=== PATIENT | male | born 1975 | race African-American/Black ===

== ENCOUNTER 2018-02-01 16:12 | Emergency (ER) | payer OTHER ==
[~2018-02-01] VITALS: Ht 177.8 cm; Wt 94.3 kg
[~2018-02-01 16:12] MED LIST: CLARITIN10 M2 PO; LOW DOSE ASPIRI81 M1 PO; PROZAC PO; VALIUM10 MG PO
[2018-02-01] MEDS ORDERED: CYMBALTA60 MG PO (17:15)
[2018-02-01] MEDS ORDERED: ESZOPICLONE3 MG PO (17:15)
[2018-02-01] MEDS ORDERED: XANAX 0.5 MG0.5 MG PO (17:15)
[2018-02-01] MEDS ORDERED: TRAZODONE HCL100 MG PO (17:16)
[2018-02-01] MEDS ORDERED: LISINOPRIL40 MG PO (17:16)
[2018-02-01] MEDS ORDERED: CYCLOBENZAPRINE5 MG PO (20:14)
[2018-02-01] MEDS ORDERED: NORCO 10-325 T1 EACH PO (20:14)
[2018-02-01 20:25] VITALS: BP 153/97
== END 2018-02-01 20:26 | disposition home or self-care (01) ==
LOC: ER 16:12
DX: S06.0X0A Concussion without loss of consciousness, initial encounter (principal); S16.1XXA Strain of muscle, fascia and tendon at neck level, initial encounter; K21.9 Gastro-esophageal reflux disease without esophagitis; I10 Essential (primary) hypertension; F17.210 Nicotine dependence, cigarettes, uncomplicated; V49.09XA Driver injured in collision with other motor vehicles in nontraffic accident, initial encounter; Y93.89 Activity, other specified; Y92.410 Unspecified street and highway as the place of occurrence of the external cause; Y99.8 Other external cause status